=== PATIENT | male | born 1975 | race Caucasian/White ===

== ENCOUNTER → 2019-11-17 08:51 | Outpatient (BNVA) | payer MEDICAID, SELFPAY | PROVIDERS: Family Provider Nurse Practitioner Family; PCP Nurse Practitioner Family; Visit Provider Nurse Practitioner Psychiatric/Mental Health | DX: F31.75 Bipolar disorder, in partial remission, most recent episode depressed (principal); F40.10 Social phobia, unspecified; E11.9 Type 2 diabetes mellitus without complications; Z79.4 Long term (current) use of insulin; G89.29 Other chronic pain | CPT/HCPCS: 99214; 99215 ==

== ENCOUNTER 2019-12-20 15:52 | Emergency (ER) | payer MEDICAID, SELFPAY ==
[2019-12-20 16:08] VITALS: BP 146/83; PULSE 97; RESP 16; TEMP 38.8; O2SAT 93; BMI 36.9
--- NOTE | 2019-12-20 16:24 | W.ED.SKABFB ---
HPI - Skin/Abscess/Foreign Bdy General: Chief complaint: Skin/Abscess/Foreign Body Stated complaint: groin pain Time Seen by Provider: 12/20/19 16:21 History of Present Illness: HPI narrative: Patient history of skin abscesses down the groin area and patient has another one that is been there present 5 days and had not improved. They have stuck needles in it herself and is got bloody drainage back. Patient complains about pain and swelling. MD complaint: abscess/boil Onset (ago): day(s) (5) Severity: similar to previous episodes Severity scale (1-10): 6 Quality: burning Pain Consistency: constant Relieving factors: none Associated symptoms: Deny chills, fever(s), nausea or vomiting Review of Systems Const: Denies: fever, chills or body aches Eyes: Denies: change in vision or blurry vision ENMT: Denies: throat pain or nasal congestion Card: Denies: chest pain or shortness of breath on exertion Resp: Denies: shortness of breath, productive cough or non-productive cough GI: Denies: abdominal pain, nausea or vomiting : Denies: difficulty urinating Musc: Denies: extremity pain Skin/Breast: Reports: skin swelling (Left upper thigh groin area.); Denies: rash Neuro: Denies: headache Psych: Denies: anxiety or depression [place]/Lymph: Denies: easy bruising PFSH ED PFSH: Statuses (acute, chronic, etc) shown below reflect problem list status as previously entered and may not be historically accurate Social History (Updated 11/17/19 @ 09:39 by Li Church) Smoking and tobacco status: current every day smoker cigarettes Packs smoked per day: 1 Years cigarettes smoked: 42 Quit status (tobacco): has tried quititng Smoking risk assessment/counseling performed?: No Physical Exam Const: COMMON NORMALS: no apparent distress, average body habitus and oriented x3 HENMT: COMMON NORMALS: normocephalic HEAD & SCALP: normal to inspection and normocephalic FACE & SINUS: normal facial exam Eye: COMMON NORMALS: conjunctivae normal GENERAL EYE: normal appearance of both eyes CONJUNCTIVA: Yes conjunctivae normal Neck/C-Spine: COMMON NORMALS: no JVD Chest: COMMONS NORMALS: inspection of chest normal Resp: COMMON NORMALS: normal respiratory effort and clear to auscultation bilaterally AUSCULTATION: clear to auscultation bilaterally Cardio: COMMON NORMALS: no JVD, regular rate and regular rhythm RATE: regular rate RHYTHM: regular rhythm GI: COMMON NORMALS: normal to inspection, nondistended, normoactive bowel sounds Extremity: COMMON NORMALS: normal to inspection and full ROM Neuro: COMMON NORMALS: oriented x3 Skin: OTHER: Abscess erythema left upper groin thigh area tender to touch Procedures Abscess I/D Site: lower extremity Side (if applicable): left Local Anesthetic: lidocaine 1% Amount of anesthesia used (mL): 2 Technique: incised with #11 blade Irrigation: Yes Packing used?: none Complications: bleeding Course Vital Signs: Vital signs: Vital Signs Temperature 101.8 F H 12/20/19 16:08 Pulse Rate 97 12/20/19 16:08 Respiratory Rate 16 12/20/19 16:08 Blood Pressure 146/83 12/20/19 16:08 Pulse Oximetry 93 12/20/19 16:08 Discharge Plan Discharge Prescriptions: No Action diltiazem HCl 360 mg capsule,extended release 24 hr 360 mg PO QAM RF: 0 clonazepam 1 mg tablet 1 mg PO BID PRN (Reason: anxiety) 30 Days Qty: 60 RF: 2 clonazepam 0.5 mg tablet 0.5 mg PO ONCE PRN (Reason: anxiety) 30 Days Qty: 30 RF: 2 gabapentin 100 mg capsule 100 mg PO BID Qty: 60 RF: 2 quetiapine [Seroquel] 100 mg tablet 400 mg PO .QHS 30 Days Qty: 120 RF: 0 lithium carbonate 300 mg tablet 300 mg PO BID 30 Days Qty: 60 RF: 2 bupropion HCl (smoking deter) 150 mg tablet extended release 12 hr 150 mg PO ONCE Qty: 30 RF: 1 Coding Level of Care Code ED [employer] Fwd Exam Problem Focused
[2019-12-20] MEDS: lidocaine 1% INJ 20 mL 3 ML INTRADERMA (16:44)
[2019-12-20 17:06] VITALS: BP 135/85; PULSE 95; RESP 16; TEMP 36.9; O2SAT 95
== END 2019-12-20 17:09 | disposition home or self-care (01) ==
PROVIDERS: Emergency Provider Nurse Practitioner Family; Family Provider Nurse Practitioner Family; PCP Nurse Practitioner Family
DX: L02.214 Cutaneous abscess of groin (principal); F17.210 Nicotine dependence, cigarettes, uncomplicated
CPT/HCPCS: 10060; 87070; 99281; 99282; J2001

== ENCOUNTER 2019-12-21 10:06 | Outpatient (CLI) | payer MEDICAID, SELFPAY ==
--- NOTE | 2019-12-21 10:11 | XRR_ITS ---
PROCEDURE INFORMATION: Exam: XR Cervical Spine, 2 or 3 Views Exam date and time: 12/21/2019 10:13 AM Age: 44 years old Clinical indication: Chronic neck pain TECHNIQUE: Imaging protocol: XR of the cervical spine, 2 or 3 views. COMPARISON: No relevant prior studies available. FINDINGS: Vertebrae: There is straightening of the cervical lordosis which can be due to patient position or muscle spasm. The cervical vertebral bodies maintain height and alignment. The facets align normally. The atlantodens interval is not widened. The spinolaminar line is intact. There is disc and uncovertebral joint degeneration at C5-C6. 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 Soft tissues: No prevertebral soft tissue swelling. XR/XR cervical spine 3V* [id number] IMPRESSION: No acute osseous abnormality.
== END 2019-12-21 10:07 | disposition home or self-care (01) ==
LOC: RAD 10:08
PROVIDERS: Family Provider Nurse Practitioner Family; PCP Nurse Practitioner Family; Visit Provider Nurse Practitioner Family
DX: M54.5 Low back pain (principal); G89.29 Other chronic pain
CPT/HCPCS: 72040

== ENCOUNTER 2019-12-27 20:00 | Outpatient (CLI) | payer MEDICAID, SELFPAY | END 2019-12-27 20:01 | disposition home or self-care (01) | LOC: SLEEP 12-28 10:10 | PROVIDERS: Family Provider Nurse Practitioner Family; PCP Nurse Practitioner Family; Visit Provider Nurse Practitioner Family | DX: G47.33 Obstructive sleep apnea (adult) (pediatric) (principal) | CPT/HCPCS: 95810 ==

== ENCOUNTER → 2020-02-09 07:38 | Outpatient (BNVA) | payer MEDICAID, SELFPAY | PROVIDERS: Family Provider Nurse Practitioner Family; PCP Nurse Practitioner Family; Visit Provider Nurse Practitioner Psychiatric/Mental Health | DX: F31.75 Bipolar disorder, in partial remission, most recent episode depressed (principal); F40.10 Social phobia, unspecified; G89.29 Other chronic pain | CPT/HCPCS: 99213 ==

== ENCOUNTER → 2020-03-08 09:16 | Outpatient (BNVA) | payer MEDICAID, SELFPAY | PROVIDERS: Family Provider Nurse Practitioner Family; PCP Nurse Practitioner Family; Visit Provider Nurse Practitioner Psychiatric/Mental Health | DX: F31.75 Bipolar disorder, in partial remission, most recent episode depressed (principal) | CPT/HCPCS: 99212 ==

== ENCOUNTER → 2020-04-26 07:51 | Outpatient (BNVA) | payer MEDICAID, SELFPAY | PROVIDERS: Family Provider Nurse Practitioner Family; PCP Nurse Practitioner Family; Visit Provider Nurse Practitioner Psychiatric/Mental Health | DX: F40.10 Social phobia, unspecified (principal); F31.75 Bipolar disorder, in partial remission, most recent episode depressed; G89.29 Other chronic pain | CPT/HCPCS: 99212 ==

== ENCOUNTER → 2020-06-21 09:48 | Outpatient (BNVA) | payer MEDICAID, SELFPAY | PROVIDERS: Family Provider Nurse Practitioner Family; PCP Nurse Practitioner Family; Visit Provider Nurse Practitioner Psychiatric/Mental Health | DX: F31.75 Bipolar disorder, in partial remission, most recent episode depressed (principal); F40.10 Social phobia, unspecified; G89.29 Other chronic pain | CPT/HCPCS: G0463 ==

== ENCOUNTER → 2020-09-13 07:45 | Outpatient (BNVA) | payer MEDICAID, SELFPAY | PROVIDERS: Family Provider Nurse Practitioner Family; PCP Nurse Practitioner Family; Visit Provider Nurse Practitioner Psychiatric/Mental Health | DX: F31.75 Bipolar disorder, in partial remission, most recent episode depressed (principal); F40.10 Social phobia, unspecified; G89.29 Other chronic pain | CPT/HCPCS: G0463 ==

== ENCOUNTER → 2021-01-10 08:58 | Outpatient (BNVA) | payer MEDICAID, SELFPAY | PROVIDERS: Family Provider Nurse Practitioner Family; PCP Nurse Practitioner Family; Visit Provider Nurse Practitioner Psychiatric/Mental Health | DX: F31.75 Bipolar disorder, in partial remission, most recent episode depressed (principal); F40.10 Social phobia, unspecified; G89.29 Other chronic pain | CPT/HCPCS: 99213 ==

== ENCOUNTER → 2021-02-14 09:28 | Outpatient (BNVA) | payer MEDICAID, SELFPAY | PROVIDERS: Family Provider Nurse Practitioner Family; PCP Nurse Practitioner Family; Visit Provider Nurse Practitioner Psychiatric/Mental Health | DX: Z51.81 Encounter for therapeutic drug level monitoring (principal); Z79.899 Other long term (current) drug therapy | CPT/HCPCS: 80053; 80061; 80178; 83036; 83721 ==

== ENCOUNTER → 2021-04-11 08:06 | Outpatient (BNVA) | payer MEDICAID, SELFPAY | PROVIDERS: Family Provider Nurse Practitioner Family; PCP Nurse Practitioner Family; Visit Provider Nurse Practitioner Psychiatric/Mental Health | DX: F31.75 Bipolar disorder, in partial remission, most recent episode depressed (principal); F40.10 Social phobia, unspecified; Z79.899 Other long term (current) drug therapy; G89.29 Other chronic pain | CPT/HCPCS: 99213 ==

== ENCOUNTER → 2021-07-23 07:51 | Outpatient (BNVA) | payer MEDICAID, SELFPAY | PROVIDERS: Family Provider Nurse Practitioner Family; PCP Nurse Practitioner Family; Visit Provider Nurse Practitioner Psychiatric/Mental Health | DX: F31.75 Bipolar disorder, in partial remission, most recent episode depressed (principal); F40.10 Social phobia, unspecified; G89.29 Other chronic pain | CPT/HCPCS: 99213 ==

== ENCOUNTER → 2021-10-15 08:47 | Outpatient (BNVA) | payer MEDICAID, SELFPAY | PROVIDERS: Family Provider Nurse Practitioner Family; PCP Nurse Practitioner Family; Visit Provider Nurse Practitioner Psychiatric/Mental Health | DX: F31.75 Bipolar disorder, in partial remission, most recent episode depressed (principal); F40.10 Social phobia, unspecified; Z79.899 Other long term (current) drug therapy; G89.29 Other chronic pain | CPT/HCPCS: 99213 ==

== ENCOUNTER 2021-12-11 11:21 | Outpatient (CLI) | payer MEDICAID, SELFPAY ==
[2021-12-11 12:16] LABS: Chol HDL Ratio 7.36 mg/dL (1.0-5.00); Cholesterol 206 mg/dL (0-200); HDL Cholesterol 28 mg/dL (60-100); Triglycerides 401 mg/dL (0-150)
[2021-12-11 12:45] LABS: LDL Cholesterol Direct 108 mg/dL (0-100)
== END 2021-12-11 11:22 | disposition home or self-care (01) ==
PROVIDERS: Visit Provider Nurse Practitioner Psychiatric/Mental Health
DX: Z79.899 Other long term (current) drug therapy (principal)
CPT/HCPCS: 80061; 83721

== ENCOUNTER → 2022-01-13 13:54 | Outpatient (BNVA) | payer MEDICAID, SELFPAY | PROVIDERS: Visit Provider Nurse Practitioner Psychiatric/Mental Health | DX: F31.75 Bipolar disorder, in partial remission, most recent episode depressed (principal); F40.10 Social phobia, unspecified; G89.29 Other chronic pain; Z51.81 Encounter for therapeutic drug level monitoring; Z79.899 Other long term (current) drug therapy | CPT/HCPCS: 80053; 80178; 99214 ==

== ENCOUNTER → 2022-02-10 07:59 | Outpatient (BNVA) | payer MEDICAID, SELFPAY | PROVIDERS: Visit Provider Nurse Practitioner Psychiatric/Mental Health | DX: F31.75 Bipolar disorder, in partial remission, most recent episode depressed (principal); F40.10 Social phobia, unspecified; G89.29 Other chronic pain; Z79.899 Other long term (current) drug therapy; Z51.81 Encounter for therapeutic drug level monitoring | CPT/HCPCS: 99213 ==

== ENCOUNTER → 2022-05-06 15:08 | Outpatient (BNVA) | payer MEDICAID, SELFPAY | PROVIDERS: Visit Provider Nurse Practitioner Psychiatric/Mental Health | DX: F31.75 Bipolar disorder, in partial remission, most recent episode depressed (principal); F40.10 Social phobia, unspecified; G89.29 Other chronic pain; Z79.899 Other long term (current) drug therapy; Z51.81 Encounter for therapeutic drug level monitoring | CPT/HCPCS: 99213 ==

== ENCOUNTER 2024-12-30 12:17 | Inpatient (IN) | payer MEDICAID, SELFPAY ==
[2024-12-30 12:18] VITALS: BP 123/65; PULSE 62; RESP 14; TEMP 36.6; O2SAT 97; BMI 37.4
--- NOTE | 2024-12-30 12:28 | ECG_ITS ---
[facility] 2024[facility]30 Pat Name: Aime Willams Department: Room: Gender: Male [employer] Department: : 1975 Requested By: Mary Miranda Order Number: [id number] Erica MD: MIKE BUCIO Measurements Intervals [place] Rate: 55 P: 0 [place]: 0 QRS: 51 QRSD: 111 T: 55 QT: 428 QTc: 411 Interpretive Statements ATRIAL FIBRILLATION MODERATE INTRAVENTRICULAR CONDUCTION DELAY [110+ ms QRS DURATION] ABNORMAL RHYTHM ECG No previous ECG available for comparison Electronically Signed On 01-03-2025 23:43:54 RO[address] MARKER by MIKE BUCIO [email or web address]
--- NOTE | 2024-12-30 12:44 | ED.C_ITS ---
HPI - Psych 2 General: Chief Complaint: Psychiatric Symptoms Stated Complaint: MHE Time Seen by Provider: 12/30/24 12:26 History of Present Illness: 49-year-old man with history of psychiat greta issues, and diabetes who presents to the emergency room with complaints of homicidal and suicidal thoughts. He says been going on for about a week. He says he has been taking his medications. He says he wants to kill himself by driving into a tree. He says he also would like to hurt ignorant people. He says he gets very angry. No drug or alcohol use today. Related Data Home Medications ?Medication ?Instructions ?Recorded ?Confirmed amlodipine 10 mg tablet 10 mg PO DAILY 12/30/2412/11 atorvastatin 10 mg tablet 10 mg PO DAILY 12/30/2412/11 dulaglutide 1.5 mg/0.5 mL 1.5 mg SUBCUT Q7D 12/30/24 0 12/30/24 subcutaneous pen injector (Trulicity) lithium carbonate 300 mg capsule 900 mg PO DAILY 12/3012/30/24 losartan 100 mg tablet 100 mg PO DAILY 12/30/24 quetiapine 400 mg tablet 400 mg PO DAILY 12/30/24 Allergies Allergy/AdvReac Type Severity Reaction Status Date / Time milk Allergy unknown Verified 01/27/23 11:17 onion Allergy unknown Verified 01/27/23 11:17 garay pepper Allergy unknown Uncoded 01/27/23 11:17 Review of Systems 2 Narrative: Constitutional symptoms: Negative except as documented in HPI. Skin symptoms: Negative except as documented in HPI. Eye symptoms: Negative except as documented in HPI. ENMT symptoms: Negative except as documented in HPI. Respiratory symptoms: Negative except as documented in HPI. Cardiovascular symptoms: Negative except as documented in HPI. Gastrointestinal symptoms: Negative except as documented in HPI. Genitourinary symptoms: Negative except as documented in HPI. Musculoskeletal symptoms: Negative except as documented in HPI. Neurologic symptoms: Negative except as documented in HPI. Psychiatric symptoms: Negative except as documented in HPI. Endocrine symptoms: Negative except as documented in HPI. PFSH ED 2 PFSH: Social History (Updated 09/08/22 @ 14:36 by Kalia Chaparro LPN) Smoking and tobacco/nicotine status: current every day tobacco/nicotine user cigarettes Packs smoked per day: 0.5 Years cigarettes smoked: 42 Quit status (tobacco/nicotine): has tried quititng Second hand smoke exposure: No Alcohol intake: former Substance/Drug Use: former Physical Exam 2 Narrative: EXAM NARRATIVE: General: Alert, no acute distress. Skin: Warm, dry. Head: Normocephalic, atraumatic. Neck: Supple, trachea midline. Eye: Extraocular movements are intact. Ears, nose, mouth and throat: mucosa moist. Cardiovascular: Regular, Normal peripheral perfusion. Respiratory: Lungs are clear to auscultation, respirations are non-labored, breath sounds are equal, Symmetrical chest wall expansion. Gastrointestinal: Soft, Nontender, Non distended Musculoskeletal: Normal ROM, no deformity. Neurological: Alert and oriented, No focal neurological deficit observed. Psychiatric: Cooperative, patient endorses homicidal and suicidal ideations. Course 2 Vital Signs: Vital signs: Vital Signs Temperature 97.9 F 12/30/24 12:18 Pulse Rate 62 12/30/24 12:18 Respiratory Rate 14 12/30/24 12:18 Blood Pressure 123/65 12/30/24 12:18 Pulse Oximetry 97 12/30/24 12:18 Oxygen Delivery Me thod Room Air 12/30/24 12:18 MDM - Psych Medical Decision Making Differential diagnosis: Patient with reported depression and suicidal ideation. concerns for infection, alcohol intoxication, cardiac issues or other medical problems prior to psychiatric admission. Workup: labwork, ekg ordered to evaluate the pathologies and to clear the patient medically prior to psychiatric admission Lab Review: Laboratory results were reviewed and interpreted by myself the emergency room physician. - Medically cleared. - EKG shows no ischemic changes. - Blood alcohol level is negative, -Tylenol and salicylate levels are negative. - Drug screen is positive for marijuana - No signs of infection, urinalysis clear and white count is not elevated - No anemia. - BUN and creatinine are within normal limits. Consultation: I spoke with Dr. Pozo who is on-call for the psychiatric service who agrees to admission. Assessment and plan: Depression Suicidal ideation Homicidal ideation ?96-hour hold placed. -Admission to neuropsychiatric unit for continued evaluation and treatment. - All lab work was reviewed and interpreted personally by myself, the ER physician - Evaluation and treatment of this problem were appropriate in the emergency setting Lab Data 12/30/24 12:49 12/30/24 12:49 Laboratory Results WBC 11.58 10^3/uL (3.29-11.43) H 12/30/24 12:49 RBC 4.56 10^6/uL (3.85-5.65) 12/30/24 12:49 Hgb 13.50 g/dL (11.27-16.99) 12/30/24 12:49 Hct 42.0 % (37-53) 12/30/24 12:49 MCV 92.1 fl (82-101) 12/30/24 12:49 MCH 29.6 pg (27-33) 12/30/24 12:49 MCHC 32.1 g/dL (30-55) 12/30/24 12:49 RDW 12.1 % (12.1-15.1) 12/30/24 12:49 Plt Count 274 10^3/cmm (157-399) 12/30/24 12:49 MPV 9.7 fL (7.4-10.4) 12/30/24 12:49 Neut % (Auto) 78.6 % 12/30/24 12:49 Lymph % (Auto) 12.6 % 12/30/24 12:49 [place] % (Auto) 5.3 % 12/30/24 12:49 Eos % (Auto) 2.3 % 12/30/24 12:49 Baso % (Auto) 0.8 % 12/30/24 12:49 Neut # (Auto) 9.10 10^3/uL (1.8-7.7) H 12/30/24 12:49 Lymph # (Auto) 1.5 10^3/uL (0.8-4.8) 12/30/24 12:49 [place] # (Auto) 0.6 10^3/uL (0.2-0.9) 12/30/24 12:49 Eos # (Auto) 0.3 10^3/uL (0.0-0.8) 12/30/24 12:49 Baso # (Auto) 0.1 10^3/uL (0.0-0.1) 12/30/24 12:49 Nucleated RBC % (auto) 0 % 12/30/24 12:49 Nucleated RBCs # 0.0 /100WBC 12/30/24 12:49 Sodium 139 mmol/L (136-145) 12/30/24 12:49 Potassium 4.0 mmol/L (3.5-5.1) 12/30/24 12:49 Chloride 105 mmol/L (98-107) 12/30/24 12:49 Carbon Dioxide 20 mmol/L (22-29) L 12/30/24 12:49 Anion Gap 18.0 (5-19) 12/30/24 12:49 BUN 8 mg/dL (6-20) 12/30/24 12:49 Creatinine 1.0 mg/dL (0.7-1.2) 12/30/24 12:49 GFR Calculation 80.1 mL/min (90-130) L 12/30/24 12:49 Glucose 116 mg/dL (65-115) H 12/30/24 12:49 Calculated Osmolality 287 mOsm/kg (285-295) 12/30/24 12:49 Calcium 9.0 mg/dL (8.5-10.5) 12/30/24 12:49 Total Bilirubin 0.2 mg/dL (0.15-1.2) 12/30/24 12:49 AST 17 U/L (0-40) 12/30/24 12:49 ALT 33 U/L (0-41) 12/30/24 12:49 Alkaline Phosphatase 118 U/L (40-130) 12/30/24 12:49 Total Protein 6.7 g/dL (6.6-8.7) 12/30/24 12:49 Albumin 3.9 g/dL (3.5-5.2) 12/30/24 12:49 Globulin 2.8 g/dL (1.3-4.6) 12/30/24 12:49 TSH 4.38 uIU/mL (0.27-4.20) H 12/30/24 12:49 Urine Color Yellow (Yellow) 12/30/24 12:31 Urine Appearance Clear (CLEAR) 12/30/24 12:31 Urine pH 6.5 (5-7) 12/30/24 12:31 Ur Specific [place] 1.011 (1.005-1.030) 12/30/24 12:31 Urine Protein Negative (Negative) 12/30/24 12:31 Urine Glucose (UA) Negative (Normal) 12/30/24 12:31 Urine Ketones Negative (Negative) 12/30/24 12:31 Urine Blood Negative (Negative) 12/30/24 12:31 Urine Nitrate Negative (Negative) 12/30/24 12:31 Urine Bilirubin Negative (Negative) 12/30/24 12:31 Urine Urobilinogen 0.2 mg/dL (Negative) 12/30/24 12:31 Ur Leukocyte Esterase Negative (Negative) 12/30/24 12:31 Urine RBC None /hpf (0-2) 12/30/24 12:31 Urine WBC None /hpf (0-5) 12/30/24 12:31 Ur Squamous Epith Cells None /hpf (0-5) 12/30/24 12:31 Amorphous Sediment Not Reportable 12/30/24 12:31 Urine Bacteria None /hpf (NONE) 12/30/24 12:31 Hyaline Casts None /lpf 12/30/24 12:31 Salicylates < 0.3 mg/dL (3-10) L 12/30/24 12:49 Urine Opiates Screen Negative ng/mL (Negative) 12/30/24 12:31 Acetaminophen < 5.0 ug/mL (10-30) L 12/30/24 12:49 Ur Barbiturates Screen Negative ng/mL (Negative) 12/30/24 12:31 Ur Phencyclidine Scrn Negative ng/mL (Negative) 12/30/24 12:31 Ur Amphetamines Screen Negative ng/mL (Negative) 12/30/24 12:31 U Benzodiazepines Scrn Negative ng/mL (Negative) 12/30/24 12:31 Urine Cocaine Screen Negative ng/mL (Negative) 12/30/24 12:31 U Marijuana (THC) Screen Positive ng/mL (Negative) H 12/30/24 12:31 Ethyl Alcohol < 10 mg/dL (0-10) 12/30/24 12:49 No radiology studies performed this visit Discharge Plan Discharge Patient Disposition: Admitted As Inpatient Admit Provider: Josafat Pozo Clinical Impression: Suicidal ideation, Depression, Homicidal ideation Condition: Stable Coding Level of Care Code ED [employer]ship for [employer] Moore
[2024-12-30 13:01] LABS: Basophils # 0.1 10^3/uL (0.0-0.1); Basophils % 0.8 %; Eosinophils # 0.3 10^3/uL (0.0-0.8); Eosinophils % 2.3 %; Lymphocytes # 1.5 10^3/uL (0.8-4.8); Lymphocytes % 12.6 %; Mean Corpuscular HGB Conc 32.1 g/dL (30-55); Mean Corpuscular Hemoglobin 29.6 pg (27-33); Mean Corpuscular Volume 92.1 fl (82-101); Mean Platelet Volume 9.7 fL (7.4-10.4); Monocytes # 0.6 10^3/uL (0.2-0.9); Monocytes % 5.3 %; Neutrophils % 78.6 %; Nucleated Red Blood Cells % 0 %; Platelet Count 274 10^3/cmm (157-399); Red Blood Count 4.56 10^6/uL (3.85-5.65); Red Cell Distribution Width 12.1 % (12.1-15.1); White Blood Count 11.58 10^3/uL (3.29-11.43)
[2024-12-30 13:04] LABS: Bilirubin Urine Negative (Negative); Blood Urine Negative (Negative); Glucose Urine UA Negative (Normal); Ketones Urine Negative (Negative); Leukocyte Esterase Urine Negative (Negative); Nitrate Urine Negative (Negative); Protein Urine Negative (Negative); Specific Gravity, Urine 1.011 (1.005-1.030); Urine Appearance Clear (CLEAR); Urine Color Yellow (Yellow); Urobilinogen Urine 0.2 mg/dL (Negative); pH Urine 6.5 (5-7)
[2024-12-30 13:13] LABS: Amphetamines Screen Urine Negative (Negative); Barbiturates Screen Urine Negative (Negative); Benzodiazepines Screen Urine Negative (Negative); Cocaine Screen Urine Negative (Negative); Opiate Screen Urine Negative (Negative); PCP Screen Urine Negative (Negative); THC Screen Urine Positive (Negative)
[2024-12-30 13:34] LABS: Alanine Aminotransferase 33 U/L (0-41); Albumin Level 3.9 g/dL (3.5-5.2); Alkaline Phosphatase 118 U/L (40-130); Aspartate Amino Transferase 17 U/L (0-40); Blood Urea Nitrogen 8 mg/dL (6-20); Carbon Dioxide 20 mmol/L (22-29); Chloride 105 mmol/L (98-107); Creatinine Clr Calc Pharmacy 110.6617; Globulin 2.8 g/dL (1.3-4.6); Glomerular Filtration Rate 80.1 mL/min (90-130); Glucose 116 mg/dL (65-115); Osmolality Calculated 287 mOsm/kg (285-295); Sodium 139 mmol/L (136-145); Thyroid Stimulating Hormone 4.38 uIU/mL (0.27-4.20); Total Bilirubin 0.2 mg/dL (0.15-1.2); Total Protein 6.7 g/dL (6.6-8.7)
[2024-12-30 13:43] LABS: Acetaminophen < 5.0 ug/mL (10-30); Alcohol Level < 10 mg/dL (0-10); Salicylate < 0.3 mg/dL (3-10)
--- NOTE | 2024-12-30 13:44 | PC.NURSE ---
96 hr rights reviewed with patient @[phone] with assistance of Stevan Everett All education reviewed. No verbalized questions or concerns at this time to HS. Patient copy left with pt @bedside. No further verbalized needs at this time.
[2024-12-30 14:26] LABS: UA Manual Slide Review YES; UA Slide Review UA Slide Review Perf
[2024-12-30 14:39] VITALS: BP 123/65; PULSE 62; O2SAT 97
--- NOTE | 2024-12-30 15:31 | PC.NURSE ---
Patient stated he came to the hospital because he knew he was reaching his breaking point. He says he has been working in [place], [place], for 4 years and does not get to see his children as often as he would like to. Patient said he has been feeling more suicidal and homicidal due to increasingly being asked by crackheads in [place] for money. He says he feels that if he is disabled and can work to provide for his family, he feels they should too. Patient endorses having seizures and taking medications for bipolar disorder, but denies knowing the names of all of them and says he can read and write very little. However, he says his of 12 years knows the names of all of them and the medical diagnoses he has. Denies any history of drug use other than marijuana in a vape pen nightly for sleep and 0.5 ppd of cigarettes daily. He has been hospitalized in a psych facility, but it was over 10+ years ago. Currently utilizes therapy in [place], [place]. Patient endorses a history of suicide attempts by cutting and says he tried to blow my head off twice without success and that these attempts were over 20 years ago. Patient calm and cooperative with assessment. Patient does have exotropia in the left eye.
[2024-12-30 15:40] VITALS: BP 153/93; PULSE 100; RESP 16; TEMP 37; O2SAT 100
--- NOTE | 2024-12-30 20:08 | PC.NURSE ---
vs not collected pt ref resp 18
[2024-12-30] MEDS: quetiapine 100 mg Tablet 400 MG PO (20:56)
[2024-12-31 06:00] VITALS: BP 125/78; PULSE 62; RESP 17; TEMP 36.7; O2SAT 95
[2024-12-31 08:47] VITALS: BP 125/78
[2024-12-31] MEDS: losartan 50 mg Tablet 100 MG PO (08:47)
[2024-12-31] MEDS: atorvastatin 40 mg Tablet 20 MG PO (08:47)
--- NOTE | 2024-12-31 10:07 | PC.NURSE ---
Called to determine the last time patient took his lithium. The call did not go through; this nurse attempted two times, will try again later
--- NOTE | 2024-12-31 10:08 | PC.NURSE ---
Morning assessment Patient resting during morning assessment, refused breakfast. patient denies anxiety, depression, suicidal thoughts, homicidal thoughts, and hallucinations. Patient denies any concerns or questions. Patient cooperative and calm.
[2024-12-31 14:00] VITALS: BP 121/76; PULSE 63; RESP 17; TEMP 36.6; O2SAT 94
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
[2024-12-31 18:44] LABS: Glucose Point of Care 125 mg/dL (70-110)
[2024-12-31 21:04] VITALS: BP 131/93; PULSE 60; RESP 18; TEMP 36.7; O2SAT 98
[2024-12-31] MEDS: quetiapine 100 mg Tablet 400 MG PO (21:11)
[2025-01-01 06:00] VITALS: BP 122/76; PULSE 60; RESP 18; TEMP 36.9; O2SAT 96; BMI 33.3
[2025-01-01] MEDS: losartan 50 mg Tablet 100 MG PO (08:40)
[2025-01-01] MEDS: atorvastatin 40 mg Tablet 20 MG PO (08:40)
--- NOTE | 2025-01-01 11:26 | P.NPUPN_ITS ---
Subjective NPU 2 Subjective: Patient presented today reporting that he is looking forward to getting some assistance from the social work team tomorrow but is also not necessarily wanting to stay here long. We discussed reviewing a few laboratory studies and starting his lithium after discussion of the risks, benefits and alternative he understood and agreed to proceed as is documented in his note. He denied any side effects with medication. Mental Status Exam 2 MSE Comments: This is an obese white male in hospital scrubs with limited grooming but intense eye contact looking somewhat older than his stated age. No abnormal movements except for psychomotor retardation. Cooperative with exam in mild to moderate distress. Speech was normal rate and volume. Mood described as anxious and overwhelmed, affect congruent. Thought process mostly organized. Thought content: Patient denied suicidal or homicidal ideation but identified some passive wish, there were no delusions reported or noted, he denied any auditory or visual hallucinations. Attention and concentration were mostly intact and memory was somewhat reliable but none were formally tested. He is alert and oriented x 3. Insight, judgment and impulse control were impaired. Vitals/I&O/Wt Last Vital Signs Temp 98.4 F 01/01/25 06:00 Pulse 60 01/01/25 06:00 Resp 18 01/01/25 06:00 BP 122/76 01/01/25 06:00 Pulse Ox 96 01/01/25 06:00 O2 Del Method Room Air 01/01/25 06:00 12/31/24 01/01/25 01/01/25 22:59 06:59 14:59 Intake Total 0 / 0 Balance 0 / 0 Weight last 48 hrs Weight 99.393 kg Weight 111.584 kg Data NPU 12/30/24 12:49 12/30/24 12:49 A&P Assessment and plan (1) Bipolar 1 disorder, depressed, partial remission: (2) Social anxiety disorder: (3) Suicidal ideation: (4) Homicidal ideation: (5) Chronic pain: Plan This is a 49-year-old white male with a history of addiction and reported mental health challenges going back to his youth. He reports mood dysregulation which has been diagnosed at some time in his life as bipolar disorder as well as diabetes and an elevated lipids. He presents reporting that he is really gotten to a point of despair after a close person more or less stopped giving worked for him to give it to a relative and more or less told him that he needed to find a different place to live and also that the little bit of side work he was doing was now going to go to someone else and so he had no income whatsoever and did have a place to live while up in [place] and therefore he came back to this area where he has a significant other with whom he does not live. She is supportive but wants him to be stable independently and not ultimately use her just for a place to live. 1. Continue current medications. Check some labs and restart lithium. 2. Encourage individual, group and milieu therapies. 3. Continue every 15 minute checks for safety. 4. Encourage sober living treatment after discharge at the highest level of care to which he is willing to commit. 5. Evaluate against the backdrop of the 96-hour hold for safety. PDMP PDMP Reviewed: Not Reviewed Attestations NPU 2 Medical Necessity Statement*: Inpatient psychiatric hospitalization is medically necessary and the clinically appropriate intervention at this time. We will monitor medications and make changes as indicated. His likely length of stay 3-5 days. Coding Level of Care Code Acute Code for [facility] Fwd Diagnoses Bipolar 1 disorder, depressed, partial remission F31.75 Social anxiety disorder F40.10 Suicidal ideation R45.851 Homicidal ideation R45.850 Chronic pain G89.29
[2025-01-01 14:00] VITALS: BP 116/76; PULSE 56; RESP 16; TEMP 36.8; O2SAT 94
[2025-01-01 19:47] LABS: Lithium 0.6 mmol/L (0.6-1.2)
[2025-01-01 19:52] LABS: Cholesterol 111 mg/dL (0-200); Free T4 Free Thyroxine 0.91 ng/dL (0.82-1.77); HDL Cholesterol 30 mg/dL (60-100); LDL Cholesterol Calculated 45 mg/dL (50-129); Thyroid Stimulating Hormone 2.88 uIU/mL (0.27-4.20); Triglycerides 179 mg/dL (0-150)
[2025-01-01] MEDS: lithium carbonate 300 mg Capsule 900 MG PO (20:02)
[2025-01-01] MEDS: quetiapine 100 mg Tablet 400 MG PO (20:02)
[2025-01-01 21:24] VITALS: BP 115/64; PULSE 68; RESP 18; TEMP 36.6; O2SAT 97
[2025-01-02 06:00] VITALS: BP 100/70; PULSE 73; RESP 17; TEMP 37; O2SAT 94
[2025-01-02 09:10] VITALS: BP 110/58
[2025-01-02] MEDS: lithium carbonate 300 mg Capsule 900 MG PO (09:10)
[2025-01-02] MEDS: losartan 50 mg Tablet 100 MG PO (09:10)
[2025-01-02] MEDS: atorvastatin 40 mg Tablet 20 MG PO (09:15)
[2025-01-02 14:00] VITALS: BP 134/78; PULSE 64; RESP 16; TEMP 36.6; O2SAT 98
--- NOTE | 2025-01-02 16:39 | P.NPUDS_ITS ---
Diagnoses at Discharge Discharge Diagnosis (1) Bipolar 1 disorder, depressed, partial remission: Status: Chronic (2) Social anxiety disorder: Status: Chronic (3) Suicidal ideation: Status: Acute (4) Homicidal ideation: Status: Acute (5) Chronic pain: Status: Chronic Reason for Visit Reason for Visit: [facility] Mental Status Exam MSE Comments: This is an obese white male in hospital scrubs with limited grooming but intense eye contact looking somewhat older than his stated age. No abnormal movements except for psychomotor retardation. Cooperative with exam in mild to moderate distress. Speech was normal rate and volume. Mood described as anxious and overwhelmed, affect congruent. Thought process mostly organized. Thought content: Patient denied suicidal or homicidal ideation but identified some passive wish, there were no delusions reported or noted, he denied any auditory or visual hallucinations. Attention and concentration were mostly intact and memory was somewhat reliable but none were formally tested. He is alert and oriented x 3. Insight, judgment and impulse control were impaired. Discharge Data Studies Completed and Pending: Laboratory Results WBC 11.58 10^3/uL (3. 29-11.43) H 12/30/24 12:49 RBC 4.56 10^6/uL (3.8 5-5.65) 12/30/24 12:49 Hgb 13.50 g/dL (11.27 -16.99) 12/30/24 12:49 Hct 42.0 % (37-53) 12/30/24 12:49 MCV 92.1 fl (82-101) 12/30/24 12:49 MCH 29.6 pg (27-33) 12/30/24 12:49 MCHC 32.1 g/dL (30-55) 12/30/24 12:49 RDW 12.1 % (12.1-15.1 ) 12/30/24 12:49 Plt Count 274 10^3/cmm (157 -399) 12/30/24 12:49 MPV 9.7 fL (7.4-10.4) 12/30/24 12:49 Neut % (Auto) 78.6 % 12/30/24 12:49 Lymph % (Auto) 12.6 % 12/30/24 12:49 [place] % (Auto) 5.3 % 12/30/24 12:49 Eos % (Auto) 2.3 % 12/30/24 12:49 Baso % (Auto) 0.8 % 12/30/24 12:49 Neut # (Auto) 9.10 10^3/uL (1.8 -7.7) H 12/30/24 12:49 Lymph # (Auto) 1.5 10^3/uL (0.8- 4.8) 12/30/24 12:49 [place] # (Auto) 0.6 10^3/uL (0.2- 0.9) 12/30/24 12:49 Eos # (Auto) 0.3 10^3/uL (0.0- 0.8) 12/30/24 12:49 Baso # (Auto) 0.1 10^3/uL (0.0- 0.1) 12/30/24 12:49 Nucleated RBC % (a uto) 0 % 12/30/24 12:49 Nucleated RBCs # 0.0 /100WBC 12/30/24 12:49 Sodium 139 mmol/L (136-1 45) 12/30/24 12:49 Potassium 4.0 mmol/L (3.5-5 .1) 12/30/24 12:49 Chloride 105 mmol/L (98-10 7) 12/30/24 12:49 Carbon Dioxide 20 mmol/L (22-29) L 12/30/24 12:49 Anion Gap 18.0 (5-19) 12/30/24 12:49 BUN 8 mg/dL (6-20) 12/30/24 12:49 Creatinine 1.0 mg/dL (0.7-1. 2) 12/30/24 12:49 GFR Calculation 80.1 mL/min (90-1 30) L 12/30/24 12:49 Glucose 116 mg/dL (65-115 ) H 12/30/24 12:49 POC Glucose 125 mg/dL (70-110 ) H 12/31/24 18:41 Calculated Osmolal ity 287 mOsm/kg (285- 295) 12/30/24 12:49 Calcium 9.0 mg/dL (8.5-10 .5) 12/30/24 12:49 Total Bilirubin 0.2 mg/dL (0.15-1 .2) 12/30/24 12:49 AST 17 U/L (0-40) 12/30/24 12:49 ALT 33 U/L (0-41) 12/30/24 12:49 Alkaline Phosphata se 118 U/L (40-130) 12/30/24 12:49 Total Protein 6.7 g/dL (6.6-8.7 ) 12/30/24 12:49 Albumin 3.9 g/dL (3.5-5.2 ) 12/30/24 12:49 Globulin 2.8 g/dL (1.3-4.6 ) 12/30/24 12:49 Triglycerides 179 mg/dL (0-150) H 01/01/25 18:14 Cholesterol 111 mg/dL (0-200) 01/01/25 18:14 LDL Cholesterol, C alc 45 mg/dL (50-129) L 01/01/25 18:14 HDL Cholesterol 30 mg/dL (60-100) L 01/01/25 18:14 LDL/HDL Ratio 1.50 RATIO (0.00- 3.22) 01/01/25 18:14 Cholesterol/HDL Ra maximiliano 3.70 mg/dL (1.0-5 .00) 01/01/25 18:14 TSH 2.88 uIU/mL (0.27 -4.20) 01/01/25 18:14 Free T4 0.91 ng/dL (0.82- 1.77) 01/01/25 18:14 Urine Color Yellow (Yellow) 12/30/24 12:31 Urine Appearance Clear (CLEAR) 12/30/24 12:31 Urine pH 6.5 (5-7) 12/30/24 12:31 Ur Specific Gravit y 1.011 (1.005-1.0 30) 12/30/24 12:31 Urine Protein Negative (Negati ve) 12/30/24 12:31 Urine Glucose (UA) Negative (Normal ) 12/30/24 12:31 Urine Ketones Negative (Negati ve) 12/30/24 12:31 Urine Blood Negative (Negati ve) 12/30/24 12:31 Urine Nitrate Negative (Negati ve) 12/30/24 12:31 Urine Bilirubin Negative (Negati ve) 12/30/24 12:31 Urine Urobilinogen 0.2 mg/dL (Negati ve) 12/30/24 12:31 Ur Leukocyte Bridgett ase Negative (Negati ve) 12/30/24 12:31 Urine RBC None /hpf (0-2) 12/30/24 12:31 Urine WBC None /hpf (0-5) 12/30/24 12:31 Ur Squamous Epith Cells None /hpf (0-5) 12/30/24 12:31 Amorphous Sediment Not Reportable 12/30/24 12:31 Urine Bacteria None /hpf (NONE) 12/30/24 12:31 Hyaline Casts None /lpf 12/30/24 12:31 Salicylates < 0.3 mg/dL (3-10 ) L 12/30/24 12:49 Urine Opiates Scre en Negative ng/mL (N egative) 12/30/24 12:31 Acetaminophen < 5.0 ug/mL (10-3 0) L 12/30/24 12:49 Ur Barbiturates Sc reen Negative ng/mL (N egative) 12/30/24 12:31 Ur Phencyclidine S crn Negative ng/mL (N egative) 12/30/24 12:31 Ur Amphetamines Sc reen Negative ng/mL (N egative) 12/30/24 12:31 U Benzodiazepines Scrn Negative ng/mL (N egative) 12/30/24 12:31 [place] 0.6 mmol/L (0.6-1 .2) 01/01/25 18:14 Urine Cocaine Scre en Negative ng/mL (N egative) 12/30/24 12:31 U Marijuana (THC) Screen Positive ng/mL (N egative) H 12/30/24 12:31 Ethyl Alcohol < 10 mg/dL (0-10) 12/30/24 12:49 Vitals: Last Vital Signs Temp 98 F 01/02/25 14:00 Pulse 64 01/02/25 14:00 Resp 16 01/02/25 14:00 BP 134/78 01/02/25 14:00 Pulse Ox 98 01/02/25 14:00 O2 Del Method Room Air 01/02/25 14:00 Discharge Plan Discharge Patient Disposition: Home Condition: Stable Prescriptions: Continued atorvastatin 10 mg tablet 10 mg PO DAILY amlodipine 10 mg tablet 10 mg PO DAILY lithium carbonate 300 mg capsule 900 mg PO DAILY losartan 100 mg tablet 100 mg PO DAILY quetiapine 400 mg tablet 400 mg PO DAILY Trulicity 1.5 mg/0.5 mL pen injector 1.5 mg SUBCUT Q7D Discharge Orders: Discharge Order (Routine); Ordered 01/02/25 Ordered By: Josafat Pozo [facility] - 02/15/25 11:00 am (Follow up) [facility], Jose Oquendo MD. [Other] (You will need to call Kristi Polancowalterdmitriy @ [phone] ext [phone] to reestablish care. ) Discharge Diet: Regular Discharge Activity: Resume usual activity Patient Instructions: Opioid Safety Discharge Attestations NPU Time Spent in Discharge Care*: less than 30 min Specific Discharge Activities: Specific discharge activities: educating patient, discussing with patient case coordinator/social workers/dc planners, documenting/other paperwork and evaluating patient/reviewing data Coding Level of Care Code Acute Code for Chg Fwd Diagnoses Bipolar 1 disorder, depressed, partial remission F31.75 Social anxiety disorder F40.10 Suicidal ideation R45.851 Homicidal ideation R45.850 Chronic pain G89.29
[2025-01-02 16:47] VITALS: BP 134/78; PULSE 64; RESP 16; TEMP 36.7; O2SAT 98
== END 2025-01-02 17:30 | disposition home or self-care (01) | DRG 885 ==
LOC: ER 13:56 → NP 14:37
PROVIDERS: Admitting Provider Psychiatry & Neurology Psychiatry; Emergency Provider Emergency Medicine; Visit Provider Psychiatry & Neurology Psychiatry
DX: F31.75 Bipolar disorder, in partial remission, most recent episode depressed (principal); R45.851 Suicidal ideations; Z59.00 Homelessness unspecified; F40.10 Social phobia, unspecified; R45.850 Homicidal ideations; G89.29 Other chronic pain; E11.9 Type 2 diabetes mellitus without complications; F17.210 Nicotine dependence, cigarettes, uncomplicated; Z79.85 Long-term (current) use of injectable non-insulin antidiabetic drugs
CPT/HCPCS: 36415; 36416; 80053; 80061; 80178; 80306; 80307; 81001; 82962; 84439; 84443; 85025; 93005; 97150; 97165; 99285

== ENCOUNTER 2025-02-27 09:06 | Emergency (ER) | payer MEDICAID, SELFPAY ==
[2025-02-27 09:15] VITALS: BP 138/75; PULSE 57; TEMP 36.7; O2SAT 98; BMI 32.2
--- NOTE | 2025-02-27 09:22 | W.ED.BACK ---
HPI - Back Pain/Injury General: Chief Complaint: Back Pain/Injury Stated Complaint: fell on porch Time Seen by Provider: 02/27/25 09:07 Source: patient and family Mode of arrival: ambulatory Limitations: no limitations History of Present Illness: Patient is a 49-year-old male who presents today following a fall. Patient reports that yesterday evening he was walking outside when he slipped on a ramp and landed on his tailbone. Patient now notes that he is having relatively constant pain which he rates as an 8/10. Denies any radiation. He is ambulatory here without difficulty or assistance. No numbness, tingling, loss of sensation to groin/gentials/lower extremities. MD elicited complaint: back pain and fall Pertinent past history: recent trauma Onset (ago): hour(s) Timing: constant Severity: moderate Pain scale (0-10): 8 Quality: sharp and aching Location: sacrum Radiation: none Exacerbating factors: movement, sitting upright and other (Pain with straining during bowel movements) Relieving factors: none Context: fall Associated symptoms: Deny abdominal pain, chills, difficulty walking, fever(s), nausea or vomiting Treatments prior to arrival: NSAIDS Work related injury: No Related Data Home Medications ?Medication ?Instructions ?Recorded ?Confirmed atorvastatin 10 mg tablet 10 mg PO QPM 12/30/24 02/27/25 dulaglutide 1.5 mg/0.5 mL 1.5 mg SUBCUT Q7D 12/30/24 02/27/25 subcutaneous pen injector (Trulicity) lithium carbonate 300 mg capsule 900 mg PO DAILY 12/30/24 02/27/25 quetiapine 400 mg tablet 400 mg PO DAILY 12/30/24 02/27/25 amlodipine 5 mg tablet 5 mg PO DAILY 02/27/25 02/27/25 Allergies Allergy/AdvReac Type Severity Reaction Status Date / Time milk Allergy unknown Verified 02/27/25 09:20 onion Allergy unknown Verified 02/27/25 09:20 bleach Allergy Mild rash Uncoded 02/27/25 09:20 garay pepper Allergy unknown Uncoded 02/27/25 09:20 Review of Systems Const: Denies: fever(s), chills or body aches Card: Denies: chest pain or palpitations Resp: Denies: dyspnea GI: Denies: abdominal pain, nausea or vomiting : Denies: flank pain Musc: Reports: back pain; Denies: neck pain, extremity pain, extremity swelling, joint pain or joint swelling Neuro: Denies: numbness in extremities, weakness in extremities, sensory changes or difficulty walking [facility] ED PFSH: Medical History Contact dermatitis Social History Smoking and tobacco/nicotine status: current every day tobacco/nicotine user cigarettes Packs smoked per day: 0.5 Years cigarettes smoked: 42 Quit status (tobacco/nicotine): has tried quititng Second hand smoke exposure: No Alcohol intake: former Substance/Drug Use: former Physical Exam Const: COMMON NORMALS: no acute distress, patient oriented x3, no limitations, healthy appearing, alert and well nourished GENERAL APPEARANCE: cooperative ORIENTATION/CONSCIOUSNESS: Yes awake, Yes oriented to person, Yes oriented to place and Yes oriented to time Resp: COMMON NORMALS: normal respiratory effort and clear to auscultation bilaterally AUSCULTATION: clear to auscultation bilaterally Cardio: COMMON NORMALS: regular rate and regular rhythm RATE: regular rate RHYTHM: regular rhythm GI: COMMON NORMALS: Normal to inspection, nondistended, normoactive bowel sounds present, Soft to palpation, non-tender and no masses PALPATION: Yes Soft to palpation : COMMON NORMALS: Yes no CVA tenderness BLADDER/KIDNEY EXAM: Yes no CVA tenderness Back/Pelvis: COMMON NORMALS: no CVA tenderness, thoracic and lumbar spine normal to inspection, no thoracic nor lumbar tenderness, thoraco-lumbar ROM normal and straight leg raise negative bilaterally PELVIS: Yes buttocks normal SACRUM: tenderness COCCYX: Coccyx tenderness present on direct palpation Extremity: GENERAL: Yes normal exam except as noted Neuro: COMMON NORMALS: patient oriented x3 SENSORIUM/ORIENTATION: Yes alert, Yes oriented to person, Yes oriented to place and Yes oriented to time Course Vital Signs: Vital signs: Vital Signs Temperature 98.0 F 02/27/25 09:15 Pulse Rate 57 L 02/27/25 09:15 Blood Pressure 138/75 02/27/25 09:15 Pulse Oximetry 98 02/27/25 09:15 Oxygen Delivery Me thod Room Air 02/27/25 09:15 MDM - Back Pain/Injury Medical Decision Making XRs negative. Patient was given instructions on conservative therapies for his coccygeal contusion. He will follow-up with primary care in 1 to 2 weeks if symptoms persist. Medical Records I reviewed the patient's medical records. Labs Radiology Impressions Sacrum and Coccyx X-Ray 02/27/25 10:10 IMPRESSION: 1. No fracture or other significant finding. All radiology interpretation(s) finalized by discharge Discharge Plan Discharge Patient Disposition: Home Clinical Impression: Coccygeal contusion Qualifiers: Encounter type: initial encounter Qualified Code(s): S30.0XXA - Contusion of lower back and pelvis, initial encounter Condition: Stable Prescriptions: No Action atorvastatin 10 mg tablet 10 mg PO QPM lithium carbonate 300 mg capsule 900 mg PO DAILY quetiapine 400 mg tablet 400 mg PO DAILY Trulicity 1.5 mg/0.5 mL pen injector 1.5 mg SUBCUT Q7D amlodipine 5 mg tablet 5 mg PO DAILY Discharge Orders: Discharge ED (Routine); Ordered 02/27/25 Ordered By: Madelin Tony Patient Instructions: Coccyx Injury (ED) Activity Restrictions/Additional Instructions: As we discussed, you may use [id number] analgesics such as Tylenol and Motrin to help with pain. You may want to use a pillow cushion or some type of seat doughnut to help with pain to your tailbone. Stand Alone Forms: Work/School Release Print Language: Korean Coding Level of Care Code ED [employer] Coordinator for Donald Moore
--- NOTE | 2025-02-27 10:10 | XR_ITS ---
WS: [id number] Exam: XR sacrum coccyx min 2V 22583 Date/Time of Exam: 02/27/2025 10:18 AM Reason For Exam: fall, tauma No sacrococcygeal fracture. Adjacent soft tissues are unremarkable. Mild DJD of the bilateral SI joints. XR/XR sacrum coccyx min 2V [id number] IMPRESSION: 1. No fracture or other significant finding.
[2025-02-27 11:26] VITALS: BP 139/87; PULSE 51; O2SAT 96
== END 2025-02-27 11:27 | disposition home or self-care (01) ==
PROVIDERS: Emergency Provider Physician Assistant
DX: S30.0XXA Contusion of lower back and pelvis, initial encounter (principal); F17.210 Nicotine dependence, cigarettes, uncomplicated; W19.XXXA Unspecified fall, initial encounter
CPT/HCPCS: 72220; 99283

== ENCOUNTER 2025-05-27 10:50 | Emergency (ER) | payer MEDICAID, SELFPAY ==
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
[2025-05-27 10:57] VITALS: BP 134/80; PULSE 85; RESP 16; TEMP 36.7; O2SAT 94; BMI 32.6
--- OUTSIDE RECORDS SUMMARY | 2025-05-27 10:57 | XMS_ITS | Patient Health Record ---
Author Organization [facility] Address [address] [place] [address] Care Team Providers Care Dolphin Trainer Name Role Phone Geeta Palencia Primary Care Provider Reason For Referral No Information Medications Medication SIG (Take, Route, Frequency, Duration) Notes Start Date End Date Status NovoLOG Mix 70/30 (70-30) 100 UNIT/ML Suspension INJECT 32 UNITS UNDER THE SKIN EVERY MORNING AND 16 UNITS EVERY EVENING; Duration: 41 Active [place] Carbonate 300 MG Capsule 2 capsule Orally Once a day; Duration: 30 day(s) Given by [facility] Active BD Insulin Syringe U/F 31G X 5/16 0.5 ML Miscellaneous DIRECTED; Duration: 30 Active SEROquel 400 MG Tablet 1 tablet at bedti me Orally Once a day; Duration: 30 day(s) Given by [facility] Active dilTIAZem HCl ER Beads 360 MG Capsule Extended Release 24 Hour 1 capsule Orally Once a day; Duration: 90 Active Atorvastatin Calcium 40 MG Tablet TAKE 1 TABLET BY MOUTH EVERY DAY AT BEDTIME; Duration: 30 Active Gabapentin 100 MG Capsule 1 capsule Orally Once a day in evening; Duration: 30 day(s) Rx. by [facility] Active Insulin Syringe 31G X 5/16 0.5 ML Miscellaneous as directed subcutaneous Twice daily; Duration: 30 days 03/08/2021 Active Social History Tobacco Use: Social History Observation Description Date Details (start date - stop date) Current Smoker NA - NA Social History Drugs/Alcohol: Social Info Question Answer Notes Alcohol Screen (Audit-C) Did you have a drink containing alcohol in the past year? Yes How often did you have a drink containing alcohol in the past year? 2 to 4 times a month (2 points) How many drinks did you have on a typical day when you were drinking in the past year? 3 or 4 drinks (1 point) How often did you have 6 or more drinks on one occasion in the past year? Less than monthly (1 point) Points 4 Interpretation Positive Drugs Have you used drugs other than those for medical reasons in the past 12 months? No Tobacco Use: Social Info Question Answer Notes xTobacco Use/Smoking Are you a current smoker How often do you smoke cigarettes? every day How many cigarettes a day do you smoke? 11-20 Are you interested in quitting? Thinking about quitting Section Notes: Refuses organ donation. Refuses organ donation. Refuses organ donation. 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 (Z79.4) Active confirmed Problem Essential hypertension (60478204) Essential hypertension (I10) Active confirmed Problem Gingivitis due to dental plaque (938274739) Gingivitis due to dental plaque (K05.10) Active confirmed Problem Hypercholesterolemia (35741294) Hypercholesterolemia (E78.00) Active confirmed Problem Bipolar I disorder (274107672) Bipolar I disorder, most recent episode (or current) unspecified (296.7) 2017 Active confirmed [id number]- Problem Pain in testicle (09971004) Testicular pain (608.89) 2017 Active confirmed [id number]- Problem Essential hypertension (85209981) Essential hypertension (401.1) 2018 Active confirmed [id number]- Problem Diabetes mellitus type 2 (disorder) (22764248) Type 2 diabetes (250.00) 2018 Active confirmed [id number]- Problem Chest pain (98557275) Chest pain (786.51) 2017 Problem resolved confirmed [id number]- Problem Sleep apnea (92313938) Sleep apnea, NEC (780.57) 2018 Problem resolved confirmed [id number]- Problem Neoplasm of uncertai n behavior of skin (62958445) Atypical skin lesion (238.2) 2018 Problem resolved confirmed [id number]- Problem Chronic low back steve n (328065509) Chronic low back pain (724.2) 2018 Problem resolved confirmed [id number]- Plan Of Treatment No Information Insurance Providers Payer Name Payer Address Payer Phone Subscriber Number Group Number Insured Name Patient Relationship to Insured Coverage Start Date Coverage End Date [place] [address] [place] [address] [id number] Aime Willams Self - patient is the insured Medical (General) History Medical History History ICD Code PREVENTIVE HEALTH MAINTENANCE Colonoscopy-Has never been done Occult Stool: Has never been done Cologuard: Has never been done Endoscopy- Has never been done Nuclear stress test- Has never been done Exercise stress test- Has never been don e Echocardiogram- 2015, unknown results Carotid doppler- Has never been done CT chest- Has never been done Chest xray: Has never been done PFTS- Has never been done Sleep Study: 2014, Sleep apnea Bone Density: Has never been done Influenza vaccine- Refused 11/03/2019, r efused 03/08/21 Pneumococcal vaccine- 11/03/2019, Rx giv en; refused 03/08/21 Prenvar 13- Has never been done Shingles vaccine- Has never been done Shingrix- Has never been done Tetanus vaccine- 2011 Pertussis Vaccine: Has never been done Hep C screenin, unknown results Eye Exam: 09/2020 Diabetic foot exam: 11/03/2019, suzan al 06/16 Microalbumin (urine): Has never been don e Controlled medication consent: Date Drug screen: Date PAST MEDICAL HISTORY Hypertension Sleep apnea Type 2 DM Psoriasis Obesity Generalized anxiety disorder Bipolar Disorder I PTSD Essential hypertension Chronic low back pain Inner ear issues Surgical History Surgery Date(Month/Year) Left eye surgery Hospitalization History Reason Date(Month/Year) Hypoglycemia and inner ear issue 11/2020
--- OUTSIDE RECORDS SUMMARY | 2025-05-27 10:57 | XMS_ITS | Encounter Summary ---
Author Organization [facility] Address [address] [place] [address] Care Team Providers Care Community Service Officer Name Role Phone Unavailable Primary Care Provider Unavailabl e Reason for Visit * Reason Onset Date Comments BRBPR 11/26/2024 Spoke Zuleika/ Julia walters @ [facility] exchange Dr. Matthews special education paraprofessional Encounter Details Date Type Department Care Team (Late st Contact Info) Description 11/26/2024 Telephone [facility] Admitting [address] [place] [address] [place] [id number] [address] BRBPR (Spoke Zuleika/ Christine @ Dr. Mark'kellie exchange Dr. Matthews special education paraprofessional) Social History Tobacco Use Types Packs/Day Years Used Date Smoking Tobacco: Every Day Cigarettes Smokeless Tobacco: Never Alcohol Use Standard Drinks/Week Comments Yes 0 (1 standard drink = 0.6 oz pur e alcohol) Sex and Gender Information Value Date Recorded Sex Assigned at Not on file Legal Sex Male 3:38 PM CDT Gender Identity Not on file Sexual Orientation Not on file documented as of this encounter Plan of Treatment Not on file documented as of this encounter Visit Diagnoses Not on filedocumented in this encounter Additional Health Concerns Infection Onset Date Last Indicated Resolved Time R/O GI Pathogen 11/25/2024 11/26/2024 11/26/2024 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
--- OUTSIDE RECORDS SUMMARY | 2025-05-27 10:57 | XMS_ITS | Clinical Summary ---
Author Organization [facility] Address [address] [place] [phone] Phone Care Team Providers Care Safety Teacher Name Role Phone Unavailable Primary Care Provider Unavailabl e Allergies Active Allergy Reactions Criticality Noted Date Comments Milk Unknown 06/29/2020 Onion Unknown 06/29/2020 Venom-Wasp Unknown 06/29/2020 Medications QUEtiapine (SEROquel) 400 mg tablet Take 400 mg by mouth daily at bedtime. Active gabapentin (NEURONTIN) 800 mg tablet Take 100 mg by mouth 2 times daily. Active atorvastatin (LIPITOR) 20 mg tablet Take 10 mg by mouth daily with supper. Active Blood-Glucose Meter (OneTouch Verio Meter) Test blood sugar once daily. 1 Each 07/02/2020 4:16 PM CDT 0 Active blood sugar diagnostic (OneTouch Verio test strips) Strip Test blood sugar once daily. 50 Each 07/02/2020 4:16 PM CDT 0 Active lancets (OneTouch Delica Plus Lancet) 33 gauge Test blood sugar once daily. 100 Each 07/02/2020 4:16 PM CDT 0 Active loratadine (CLARITIN) 10 mg tablet Take 1 Tablet (10 mg) by mouth daily. 30 Tablet 07/03/2020 9:07 AM CDT 0 Active fluticasone propionate (FLONASE) 50 mcg/spray [place], Suspension nasal inhaler Administer 2 Sprays in each nostril daily. 16 Gram 1 07/03/2020 9:07 AM CDT 0 Active mupirocin (BACTROBAN) 2 % Ointment Apply to affected area daily. Apply to nostril, belly button and anus twice a day for 14 days 44 Gram 08/28/2021 11:52 AM CDT 1 Active chlorhexidine gluconate (HIBICLENS) 4 % Liquid Apply to affected area 2 times daily. Bathe twice daily 472 mL 1 08/28/2021 11:52 AM CDT 1 Active ibuprofen (MOTRIN) 600 mg tablet Take 1 Tablet (600 mg) by mouth every 6 hours as needed for Pain. 30 Tablet 09/09/2021 8:38 PM CDT 1 Active lithium carbonate 300 mg tablet Take 900 mg by mouth daily at bedtime. Active amLODIPine (NORVASC) 10 mg tablet Take 10 mg by mouth daily. Active losartan (COZAAR) 100 mg tablet Take 100 mg by mouth daily. Active ondansetron (ZOFRAN ODT) 4 mg Tablet, Rapid DissolveIndica tions:Abscess of left groin Dissolve 1 Tablet (4 mg) on top of tongue, then swallow with saliva every 8 hours as needed for Nausea/Vomiting. 30 Tablet 11/27/2024 11:08 AM CENTRAL SUPPLY SUPERVISOR 5 Active Trulicity 1.5 mg/0.5 mL injection INJECT 1.5 MG SUBCUTANEOUSLY ONCE A WEEK 5 Active Active Problems Problem Noted Date Diagnosed Date Nausea & vomiting 11/26/2024 Acute diarrhea 11/26/2024 HAO (acute kidney injury) 11/26/2024 Normal anion gap metabolic acidosis 11/26/2024 Hyponatremia 11/26/2024 Gastroenteritis 11/26/2024 Mood disorder 11/26/2024 Dizziness 06/29/2020 Chest pain 06/29/2020 Type 2 diabetes mellitus without complication Encounters Date Type Department Care Team Description 05/09/2025 External Device Data [facility] ABSTRACTION Provider, Abstract 03/30/2025 External Device Data [facility] ABSTRACTION Provider, Abstract 03/29/2025 External Device Data [facility] ABSTRACTION Provider, Abstract 03/14/2025 External Device Data [facility] ABSTRACTION Provider, Abstract 03/14/2025 External Device Data [facility] ABSTRACTION Provider, Abstract 03/14/2025 External Device Data [facility] ABSTRACTION Provider, Abstract from Last 3 Months Family History Medical History Relation Name Comments Unknown Father Unknown Mother Relation Name Status Comments Father Mother Social History Tobacco Use Types Packs/Day Years Used Date Smoking Tobacco: Every Day Cigarettes Smokeless Tobacco: Never Tobacco Cessation:Ready to Q uit: Not Asked; Counseling Given: Not Answered Alcohol Use Standard Drinks/Week Comments Not Currently 0 (1 standard drink = 0.6 oz pur e alcohol) Sex and Gender Information Value Date Recorded Sex Assigned at Not on file Legal Sex Male 3:38 PM CDT Gender Identity Not on file Sexual Orientation Not on file Last Filed Vital Signs Vital Sign Reading Time Taken Comments Blood Pressure 151/82 12/06/2024 11:20 AM CENTRAL SUPPLY SUPERVISOR Pulse 52 12/06/2024 11:20 AM CENTRAL SUPPLY SUPERVISOR Temperature 36.8 C (98.2 F) 12/06/2024 10:51 AM CENTRAL SUPPLY SUPERVISOR Respiratory Rate 12 12/06/2024 11:20 AM CENTRAL SUPPLY SUPERVISOR Oxygen Saturation 100% 12/06/2024 11:20 AM CENTRAL SUPPLY SUPERVISOR Inhaled Oxygen Concentration - - Weight 99.3 kg (219 lb) 12/06/2024 9:46 AM CENTRAL SUPPLY SUPERVISOR Height 175.3 cm (5' 9 ) 12/06/2024 9:46 AM CENTRAL SUPPLY SUPERVISOR Body Mass Index 32.34 12/06/2024 9:46 AM CENTRAL SUPPLY SUPERVISOR Plan of Treatment Health Maintenance Due Date Last Done Comments DIABETES ANNUAL FOOT EXAM 1995 DIABETES ANNUAL RETINAL EXAM 1995 DIABETES MICROALBUMIN ANNUAL SCREEN 1995 LDL CHOLESTEROL ANNUAL 1995 DTAP/TDAP/TD VACCINES (1 - Tdap) 1996 HEPATITIS B VACCINES (1 of 3 - 19+ 3-dose series) 1996 DIABETES HBA1C Q 6 MONTHS 01/01/2021 07/01/2020 FIT-DNA Q 3 years 2022 FIT/FOBT Q 1 year 2022 Flex Sig/CT Colonography Q 5 years 2022 INFLUENZA VACCINE (#1) 2025 COLORECTAL SCREENING 12/06/2029 12/06/2024, 12/06/19 Colorectal Cancer Screening 12/06/2029 Abdominal Aortic Aneurysm (AAA) Screening Completed 11/26/2024, 06/29/2020 Procedures Procedure Name Priority Date/Time Associated Diagnosis Comments COLONOSCOPY REPORT 12/06/2024 10 :49 AM CENTRAL SUPPLY SUPERVISOR CT ABDOMEN PELVIS WO CONTRAST Routine 11/26/2024 11:34 AM CENTRAL SUPPLY SUPERVISOR HEMOGLOBIN A1C Routine 07/01/2020 6:21 AM CDT from Last 3 Months or Most Recently Relevant to Health Maintenance Results * COLONOSCOPY REPORT (12/06/2024 10:49 AM CENTRAL SUPPLY SUPERVISOR) Narrative Procedure Note Lonny Beasley MD - 12/06/2024 10:49 AM CST [facility] Endoscopy Patient Name: Aime Willams Procedure Date: 12/06/2024 Date of : 1975 Attending MD: Lonny Beasley MD, Procedure: Colonoscopy Indications: Screening for colorectal malignant neoplasm Providers: Lonny Beasley MD Referring MD: Medicines: Monitored Anesthesia Care Complications: No immediate complications. Procedure: Informed consent was obtained for the procedure, including moderate sedation after risks were discussed. Based on the pre-procedure assessment, including review of the patient's medical history, medications, allergies, and review of systems, the patient was deemed to be an appropriate candidate for sedation. A timeout was performed. Continuous ECG monitoring, pulse oximetry, blood pressure monitoring, and direct observation were performed. The Colonoscope was introduced through the anus and advanced to the cecum, identified by appendiceal orifice and ileocecal valve. The colonoscopy was performed without difficulty. The patient tolerated the procedure well. The quality of the bowel preparation was evaluated using the BBPS ([place] Bowel Preparation Scale) with scores of: Right Colon = 2 (minor amount of residual staining, small fragments of stool and/or opaque liquid, but mucosa seen well), Transverse Colon = 2 (minor amount of residual staining, small fragments of stool and/or opaque liquid, but mucosa seen well) and Left Colon = 2 (minor amount of residual staining, small fragments of stool and/or opaque liquid, but mucosa seen well). The total BBPS score equals 6. The quality of the bowel preparation was fair. Findings: The perianal and digital rectal examinations were normal. A 2 mm polyp was found in the cecum. The polyp was sessile. The polyp was removed with a cold snare. Resection and retrieval were complete. A 3 mm polyp was found in the rectum. The polyp was sessile. The polyp was removed with a cold snare. Resection and retrieval were complete. Non-bleeding internal hemorrhoids were found during retroflexion. The hemorrhoids were small. Impression: - Preparation of the colon was fair. - One 2 mm polyp in the cecum, removed with a cold snare. Resected and retrieved. - One 3 mm polyp in the rectum, removed with a cold snare. Resected and retrieved. - Non-bleeding internal hemorrhoids. Recommendation: - Await pathology results. - Repeat colonoscopy in 5 years for surveillance. Procedure Code(s): --- Professional --- 49594, Colonoscopy, flexible; with removal of tumor(s), polyp(s), or other lesion(s) by snare technique CPT copyright 2020 [employer]. All rights reserved. The codes documented in this report are preliminary and upon seam rubber review may be revised to meet current compliance requirements. Lonny Beasley MD 12/06/2024 10:49:05 AM This report has been signed electronically. Number of Addenda: [id number] [place] [address] Lonny Beasley MD GI PROCEDURE ORDERABLES Final Re sult * CT ABDOMEN PELVIS WO CONTRAST (11/26/2024 11:34 AM CENTRAL SUPPLY SUPERVISOR) Anatomical Region Laterality Modality Abdomen Computed Tomogra phy 11/26/2024 11:3 2 AM CENTRAL SUPPLY SUPERVISOR Impressions 11/26/2024 12:01 PM CENTRAL SUPPLY SUPERVISOR IMPRESSION: 1. No acute abnormality of the abdomen or pelvis. 2. Left adrenal adenoma. DICTATION LOCATION: Location [address] [place] [address] 11/26/2024 12:01 PM CENTRAL SUPPLY SUPERVISOR EXAMINATION: CT abdomen pelvis without contrast. HISTORY: Abdominal pain. TECHNIQUE: CT of the abdomen and pelvis was performed without intravenous contrast according to standard protocol. The examination was performed with the adjustment of mA according to the patient size and/or the use of Iterative Reconstruction Technique. COMPARISON: 06/29/2020 FINDINGS: Calcified granuloma is present in the left lower lobe. The heart is normal in size without pericardial effusion. The distal esophagus appears normal. Noncontrast appearance of the liver is unremarkable. The gallbladder appears normal. There is no biliary ductal dilatation. The pancreas, spleen, and right adrenal gland appear normal. Small left adrenal nodule is mildly increased in size from the prior examination measuring 11 mm, previously 8 mm. Minimal change is consistent with adenoma. There is no hydronephrosis or nephrolithiasis. The bladder appears normal. No bladder or ureteral stone is identified. The prostate is normal in size. The appendix is normal. There is no free gas. There is no bowel obstruction. There is no calcified atherosclerosis. No lymphadenopathy is identified. There is no suspicious osseous lesion. Procedure Note Amber Garcia MD - 11/26/2024 EXAMINATION: CT abdomen pelvis without contrast. HISTORY: Abdominal pain. TECHNIQUE: CT of the abdomen and pelvis was performed without intravenous contrast according to standard protocol. The examination was performed with the adjustment of mA according to the patient size and/or the use of Iterative Reconstruction Technique. COMPARISON: 06/29/2020 FINDINGS: Calcified granuloma is present in the left lower lobe. The heart is normal in size without pericardial effusion. The distal esophagus appears normal. Noncontrast appearance of the liver is unremarkable. The gallbladder appears normal. There is no biliary ductal dilatation. The pancreas, spleen, and right adrenal gland appear normal. Small left adrenal nodule is mildly increased in size from the prior examination measuring 11 mm, previously 8 mm. Minimal change is consistent with adenoma. There is no hydronephrosis or nephrolithiasis. The bladder appears normal. No bladder or ureteral stone is identified. The prostate is normal in size. The appendix is normal. There is no free gas. There is no bowel obstruction. There is no calcified atherosclerosis. No lymphadenopathy is identified. There is no suspicious osseous lesion. IMPRESSION: 1. No acute abnormality of the abdomen or pelvis. 2. Left adrenal adenoma. DICTATION LOCATION: Location [address] [place] [address] ORDERABLES Final Result * (ABNORMAL) HEMOGLOBIN A1C (07/01/2020 6:21 AM CDT) HEMOGLOBIN A1C 6.0(H) <5.7 % 07/01/2020 10:30 AM [facility] EST. AVG GLUCOSE, A1C 126 mg/dL 07/01/2020 10:30 AM [facility] Blood Venipuncture / Unknown 07/01/2020 6:21 AM CDT 07/01/2020 6:56 AM CDT Narrative [facility] - 07/01/2020 10:30 AM CDT HGB A1C INTERPRETATION NORMAL: <5.7% PRE-DIABETES: 5.7 - 6.4% DIABETES: 6.5% OR GREATER Yaz Patton MD CHEMISTRY ORDERABLES Final Resul t [facility] CLIA# [id number] [address] [facility] [place] [address] from Last 3 Months or Most Recently Relevant to Health Maintenance Insurance MEDICAID [place] [employer] Medicaid RX [employer] (INTERNAL) [facility] Internal Plans Advance Directives For more information, please contact: [phone] * Full Code (Latest Code Status on File) Date Activated Date Inactivated Comments 11/26/2024 12:34 AM 11/27/2024 12:43 PM * Full Code Date Activated Date Inactivated Comments 06/29/2020 11:40 PM 07/03/2020 3:03 PM
--- NOTE | 2025-05-27 11:02 | W.ED.GENADLT ---
HPI - General Adult General: Chief complaint: General Medical Stated complaint: Sick from not having medicine Time Seen by Provider: 05/27/25 11:01 History of Present Illness: Patient presents to the ED requesting refills of psychiatric medications. Patient reports being out of lithium for almost a month and has been unable to reach their psychiatrist despite multiple attempts. Patient states they take Seroquel 400mg once daily and lithium 300mg once daily. Patient denies any side effects from these medications and reports they are effective in managing their symptoms. Patient specifically notes, not being on it, I can't stand myself and reports not having slept in almost three days since being off the medications. Patient has an upcoming appointment with their psychiatrist on the of this month. Patient reports multiple attempts to contact their provider including calls, texts, and emails, stating they don't wanna send no more faxes because they sent so many. Related Data Home Medications ?Medication ?Instructions ?Recorded ?Confirmed atorvastatin 10 mg tablet 10 mg PO QPM 12/30/24 02/27/25 dulaglutide 1.5 mg/0.5 mL 1.5 mg SUBCUT Q7D 12/30/24 02/27/25 subcutaneous pen injector (Trulicity) amlodipine 5 mg tablet 5 mg PO DAILY 02/27/25 02/27/25 Previous Rx's ?Medication ?Instructions ?Recorded lithium carbonate 300 mg capsule 300 mg PO DAILY #30 caps 05/27/25 quetiapine 400 mg tablet 400 mg PO DAILY #30 tabs 05/27/25 Allergies Allergy/AdvReac Type Severity Reaction Status Date / Time garay pepper Allergy Unknown Verified 05/27/25 11:00 Bleach (Sodium Hypochlorite) Allergy Unknown Verified 05/27/25 11:00 milk Allergy unknown Verified 05/27/25 11:00 onion Allergy unknown Verified 05/27/25 11:00 Review of Systems General: Reports: 10 or more systems reviewed and unremarkable except in HPI and below PFSH ED PFSH: Medical History (Updated 05/27/25 @ 11:12 by Chaka Bender DO) Contact dermatitis Social History Smoking and tobacco/nicotine status: current every day tobacco/nicotine user cigarettes Packs smoked per day: 0.5 Years cigarettes smoked: 42 Quit status (tobacco/nicotine): has tried quititng Second hand smoke exposure: No Alcohol intake: former Substance/Drug Use: former Physical Exam Const: COMMON NORMALS: no acute distress, patient oriented x3, alert and well nourished HENMT: COMMON NORMALS: normocephalic HEAD & SCALP: normocephalic Eye: COMMON NORMALS: Equal, round and reactive pupils present, EOMs intact bilaterally and conjunctivae normal CONJUNCTIVA: Yes conjunctivae normal PUPIL: Yes Equal, round and reactive pupils present Chest: COMMONS NORMALS: normal inspection of the chest and normal palpation of entire chest wall Resp: COMMON NORMALS: normal respiratory effort, No retractions, No use of accessory muscles, clear to auscultation bilaterally and percussion normal AUSCULTATION: clear to auscultation bilaterally PERCUSSION: percussion normal GI: COMMON NORMALS: Normal to inspection, nondistended, normoactive bowel sounds present, Soft to palpation, non-tender, No hepatosplenomegaly present, no masses and no bruits PALPATION: Yes Soft to palpation and Yes No hepatosplenomegaly present Extremity: COMMON NORMALS: normal to inspection, full ROM, capillary refill normal, no joint enlargement, no clubbing, cyanosis or edema, no calf tenderness and no pedal edema Neuro: COMMON NORMALS: patient oriented x3 SENSORIUM/ORIENTATION: Yes alert Skin: COMMON NORMALS: no rashes or lesions noted, turgor normal and no jaundice GENERAL SKIN EXAM: no rashes or lesions noted and turgor normal Course Vital Signs: Vital signs: Vital Signs Temperature 98.1 F 05/27/25 10:57 Pulse Rate 67 05/27/25 11:28 Respiratory Rate 16 05/27/25 10:57 Blood Pressure 140/76 05/27/25 11:28 Pulse Oximetry 93 05/27/25 11:28 Oxygen Delivery Me thod Room Air 05/27/25 10:57 MDM - General Adult Medical Decision Making 1. Medication Non-compliance (unintentional) due to inability to obtain refills - Patient has been without lithium for approximately one month - Reports insomnia for the past three days - Experiencing subjective worsening of symptoms without medication 2. Bipolar Disorder (presumed based on medication regimen) - Previously stable on Seroquel 400mg daily and lithium 300mg daily - Will provide short-term refill of both medications to bridge until psychiatry appointment - Electronically prescribing Seroquel 400mg daily and lithium 300mg daily with sufficient quantity until psychiatry appointment on the - No lithium level needed at this time as patient has been off medication 3. Follow-up Plan - Patient to follow up with psychiatrist as scheduled on the - Emphasized importance of maintaining regular psychiatric care - Advised that ED is not ideal for medication refills but understood extenuating circumstances - Recommended patient discuss communication issues with psychiatrist to prevent future lapses in medication No radiology studies performed this visit Discharge Plan Discharge Patient Disposition: Home Clinical Impression: Bipolar 1 disorder, depressed, partial remission, Depression Condition: Stable Prescriptions: Continued quetiapine 400 mg tablet 400 mg PO DAILY Qty: 30 0RF Changed lithium carbonate 300 mg capsule 300 mg PO DAILY Qty: 30 0RF No Action atorvastatin 10 mg tablet 10 mg PO QPM Trulicity 1.5 mg/0.5 mL pen injector 1.5 mg SUBCUT Q7D amlodipine 5 mg tablet 5 mg PO DAILY Discharge Orders: Discharge ED (Routine); Ordered 05/27/25 Ordered By: Chaka Bender Discharge Diet: Advance as tolerated Discharge Activity: Resume usual activity Patient Instructions: Opioid Safety, Pain Management, Patient Portal & Thea Instructions Activity Restrictions/Additional Instructions: 1. Take Rx as directed. 2. Follow up with PCP and pyschiatry 3. Return to ED for new or worsening symptoms. 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
[2025-05-27 11:28] VITALS: BP 140/76; PULSE 67; O2SAT 93
== END 2025-05-27 11:28 | disposition home or self-care (01) ==
PROVIDERS: Emergency Provider Family Medicine
DX: F31.9 Bipolar disorder, unspecified (principal); F17.210 Nicotine dependence, cigarettes, uncomplicated
CPT/HCPCS: 99283